=== PATIENT | male | born 1960 | race Caucasian/White ===

== ENCOUNTER 2016-11-24 01:02 | Emergency (ER) | payer BC, OTHER ==
[~2016-11-24] VITALS: Ht 175.3 cm; Wt 78.5 kg
[2016-11-24 01:08] VITALS: Ht 175.3 cm; Wt 78.5 kg
[2016-11-24] MEDS ORDERED: LIDOCAINE/MYLANTA 40 ML BTL PO ONE (02:00)
[2016-11-24] MEDS ORDERED: RANI150T9 PO (03:20)
[2016-11-24] MEDS ORDERED: HYDR25CA PO (03:20)
--- NOTE | 2016-11-24 03:26 | ERD ---
ER Documentation Chief Complaint Date/Time DATE: 11/24/16 TIME: 03:23 Chief Complaint bib ra from street for htn, anxiety, and etoh HPI This 56-year-old male presented via ambulance after he was walking when he was outside when he suddenly felt very anxious, lightheaded like he was going to faint and had difficulty breathing. He suffers from severe anxiety attacks sometimes he says. Is feeling a little better now. Did have some chest discomfort at that time. ROS All systems reviewed and are negative except as per history of present illness. Medications Home Meds Active Scripts Hydroxyzine Pamoate* (Vistaril*) 25 Mg Capsule, 25 MG PO Q8H for ANXIETY, #10 CAP Prov:VICTOR HUGO SANCHEZ DO 11/24/16 Ranitidine Hcl* (Zantac*) 150 Mg Tablet, 150 MG PO BID, #60 TAB Prov:VICTOR HUGO SANCHEZ DO 11/24/16 Allergies Allergies: Coded Allergies: codeine (Verified Allergy, Unknown, 11/24/16) phenytoin (Verified Allergy, Unknown, 11/24/16) PMhx/Soc History of Surgery: Yes (brain sx,left femur replacement,toe & finger sx) Anesthesia Reaction: No Hx Neurological Disorder: Yes (brain aneurysm 2000) Hx Respiratory Disorders: No Hx Cardiac Disorders: Yes (HTN) Hx Psychiatric Problems: Yes (panic attack,anxiety) Hx Miscellaneous Medical Probl: No Hx Alcohol Use: Yes (rarely) Hx Substance Use: No Hx Tobacco Use: No Smoking Status: Never smoker Physical Exam Vitals Vital Signs Date Time Temp Pulse Resp B/P Pulse Ox O2 Delivery O2 Flow Rate FiO2 11/24/16 01:47 100 18 168/96 94 Room Air 11/24/16 01:08 98.5 71 18 144/93 100 Physical Exam Const: [] No distress Head: Atraumatic Eyes: Normal Conjunctiva ENT: Normal External Ears, Nose and Mouth. Neck: Full range of motion..~ No meningismus. Resp: Clear to auscultation bilaterally Cardio: Regular rate and rhythm, no murmurs Abd: Soft, non tender, non distended. Normal bowel sounds Skin: No petechiae or rashes Back: No midline or flank tenderness Ext: No cyanosis, or edema Neur: Awake and alert Psych: Normal Mood and Affect Results 24 hrs Current Medications Medications (Trade) Dose Ordered Sig/Keke Route PRN Reason Start Time Stop Time Status Last Admin Dose Admin Miscellaneous Medication (Gi Cocktail (2)) 40 ml ONCE ONCE PO 11/24/16 02:00 11/24/16 02:01 DC 11/24/16 02:25 Procedures/MDM Likely anxiety reaction and patient with history of the same. He was feeling better already and he was given a GI cocktail which he said calm his symptoms and he was asymptomatic in the emergency room. He had a nonischemic EKG as well as negative troponin. No signs of infection. I will discharge her with Zantac as well as Vistaril and instructions to see a primary care doctor in the next couple of days and request an appointment for an outpatient echocardiogram. EKG interpretation: Normal sinus rhythm rate of 60, normal axis, normal intervals, no ST or T-wave changes concerning for acute ischemia. Normal EKG court recording monitor interpretation: Normal sinus rhythm without arrhythmia To severe interpretation: I see no acute process, see no pneumothorax, no wide mediastinum, no pulmonary edema, no fractures. Departure Diagnosis: Primary Impression: Near syncope Additional Impression: Anxiety Condition: Stable Patient Instructions: Your Body's Response to Anxiety Referrals: REPLACED BY [facility] YOU HAVE RECEIVED A MEDICAL SCREENING EXAM AND THE RESULTS INDICATE THAT YOU DO NOT HAVE A CONDITION THAT REQUIRES URGENT TREATMENT IN THE EMERGENCY DEPARTMENT. FURTHER EVALUATION AND TREATMENT OF YOUR CONDITION CAN WAIT UNTIL YOU ARE SEEN IN YOUR DOCTORS OFFICE WITHIN THE NEXT 1-2 DAYS. IT IS YOUR RESPONSIBILITY TO MAKE AN APPOINTMENT FOR FOLOW-UP CARE. IF YOU HAVE A PRIMARY DOCTOR --you should call your primary doctor and schedule an appointment IF YOU DO NOT HAVE A PRIMARY DOCTOR YOU CAN CALL OUR PHYSICIAN REFERRAL HOTLINE AT IF YOU CAN NOT AFFORD TO SEE A PHYSICIAN YOU CAN CHOSE FROM THE FOLLOWING REPLACED BY [facility] [address] [facility] [address] [facility] [address] [facility] [address] [facility]. [facility] [address] [facility]. [facility]. [address] Additional Instructions: Call your primary care doctor TOMORROW for an appointment during the next 1-2 days. Request an appointment for an ECHOCARDIOGRAM. See the doctor sooner or return here if your condition worsens before your appointment time. VICTOR HUGO SANCHEZ DO Nov 24, 2016 03:25
[2016-11-24 03:45] VITALS: BP 128/94; PULSE 86; RESP 18; TEMP 98.5
== END 2016-11-24 03:47 | disposition home or self-care (01) ==
LOC: E/R 01:02
DX: R55 Syncope and collapse (principal); I10 Essential (primary) hypertension
CPT/HCPCS: 99283